=== PATIENT | female | born 1960 | race Caucasian/White ===

== ENCOUNTER 2023-05-06 13:32 | Emergency (ER) | payer OTHER ==
[2023-05-06] MEDS ORDERED: Sodium Chloride 0.9% 10 ML Syringe FLUSH PRN (13:52)
[2023-05-06] MEDS ORDERED: Nitroglycerin 0.4 MG Tab.SL SL ONE (13:52)
[2023-05-06] MEDS ORDERED: Sodium Chloride 0.9% 500 ML IV ONE (14:01)
[2023-05-06 15:06] LABS: ALANINE AMINOTRANSFERASE,ALT 20 U/L (12-78); ALBUMIN 3.9 g/dL (3.4-5.0); ALKALINE PHOSPHATASE 81 IU/L (46-116); ANION GAP 6.6 meq/L (7-15); ASPARTATE AMNIOTRANSFERASE,AST 17 U/L (15-37); BILIRUBIN TOTAL 0.3 mg/dL (0.2-1.0); BLOOD UREA NITROGEN,BUN 25 mg/dL (7-18); CALCIUM 9.2 mg/dL (8.5-10.1); CARBON DIOXIDE,CO2 31.4 mmol/L (21.0-32.0); CHLORIDE,CL 104 mmol/L (98-107); CREATINE KINASE,CK 100 U/L (26-308); CREATININE 0.87 mg/dL (0.51-1.17); GLUCOSE RANDOM 80 mg/dL (70-99); POTASSIUM,K 4.2 mmol/L (3.5-5.1); PROTEIN TOTAL,TP 7.7 g/dL (6.4-8.2); SODIUM,NA 142 mmol/L (136-145)
[2023-05-06 15:11] LABS: ESTIMATED GFR 76 mL/min (>=60)
[2023-05-06 15:21] LABS: BASOPHILS ABSOLUTE AUTO 0.06 K/uL (0.00-0.20); BASOPHILS PERCENT AUTO 0.9 % (0.0-2.0); EOSINOPHILS ABSOLUTE AUTO 0.29 K/uL (0.00-0.50); EOSINOPHILS PERCENT AUTO 4.4 % (0.0-5.0); HEMATOCRIT 41.3 % (34.0-46.0); HEMOGLOBIN 13.8 g/dL (11.7-15.5); LYMPHOCYTES ABSOLUTE AUTO 2.41 K/uL (0.50-3.50); MEAN CORPUSCULAR HEMOGLOBIN 31.3 pg (28.2-33.3); MEAN CORPUSCULAR HGB CONC 33.4 g/dL (31.7-36.0); MEAN CORPUSCULAR VOLUME 93.7 fL (84.0-98.0); MONOCYTES PERCENT AUTO 13.8 % (2.0-14.0); NEUTROPHILS ABSOLUTE AUTO 2.86 K/uL (1.40-7.00); NEUTROPHILS PERCENT AUTO 43.9 % (45.0-80.0); PLATELET COUNT,PLT 185 K/uL (150-350); RED BLOOD CELL COUNT 4.41 M/uL (3.77-5.09); RED CELL DISTRIBUTION WIDTH 13.4 % (11.2-14.1); WHITE BLOOD CELL COUNT,WBC 6.5 K/uL (4.0-10.2)
== END 2023-05-06 15:56 | disposition home or self-care (01) ==
LOC: LL.ED 13:32
DX: F41.9 Anxiety disorder, unspecified (principal); R07.89 Other chest pain; Z88.0 Allergy status to penicillin; Z88.1 Allergy status to other antibiotic agents; Z88.8 Allergy status to other drugs, medicaments and biological substances; Z88.2 Allergy status to sulfonamides
CPT/HCPCS: 36415; 71045; 80053; 82550; 84484; 85025; 93005; 93010; 99284; 99285; J7030